=== PATIENT | female | born 1955 | race Two or more races ===

== ENCOUNTER 2016-11-14 12:17 | Emergency (ER) | payer OTHER ==
[2016-11-14 12:22] VITALS: BP 134/80; PULSE 80; TEMP 97.9
--- NOTE | 2016-11-14 12:23 | PDOC ---
History of Present Illness - General Chief Complaint: Chest Pain Stated Complaint: CHEST PRESSURE Time Seen by Provider: 11/14/16 12:22 History Source: Patient Exam Limitations: No Limitations - History of Present Illness Initial Comments: 11/14/16 12:23 This pt is a 61 yo F with a past medical history of pre Diabetes, HLD, Asthma presenting to the ER with a complaint of chest pressure. The patient reports that the symptoms began yesterday. Yeserday had chest pressure lasting 15 - 20 minutes. Today this recurred and is ongoing, occurred while doing nothing in particular. PT described chest symptoms as pressure, rates it 4/10, no radiation to arm/jaw or back No associated diaphoresis or nausea No exertional symptoms Pt denies chest wall trauma or bruising. Pt denies lower extremity edema. Pt denies cough or shortness of breath Pt denies nausea, vomiting, or diarrhea. Pt denies lightheadedness, palpitations, or syncope Pt denies radiation of pain, aggravation of pain or alleviation of pain. Pt denies allergies, and significant past hospitalizations. Pt denies alcohol use, tobacco use, or recreational drug use. Pt denies past history of cardiac disease. Stress test ?10 years ago (Reportedly negative) Pt denies recent travel. PMH: pre diabetes, HLD PSH: denies Meds: Singulair, Atorvastatin, Metformin ALL: NKDA Social: denies tobacco use GENERAL/CONSTITUTIONAL: No: fever, chills, weakness, loss of appetite. HEAD, EYES, EARS, NOSE AND THROAT: No: change in vision, ear pain, discharge, sore throat, throat swelling. CARDIOVASCULAR: (+) chest pain No: lightheadedness, palpitations, syncope RESPIRATORY: No: cough, shortness of breath, wheezing, hemoptysis, stridor. GASTROINTESTINAL: No: nausea, vomiting, diarrhea, abdominal cramping, rectal bleeding, constipation. GENITOURINARY: No: dysuria, hematuria, frequency, urgency, flank pain. MUSCULOSKELETAL: No: back pain, neck pain, joint pain, muscle swelling or pain SKIN AND BREASTS: No: lesions, pallor, rash or easy bruising. NEUROLOGIC: No: headache, vertigo, paresthesias, weakness ENDOCRINE: No: unexplained weight gain or loss HEMATOLOGIC/LYMPHATIC: No: anemia, easy bleeding, swelling nodes. GENERAL: The patient is in no acute distress. HEAD: Normal with no signs of trauma. EYES: PERRLA, EOMI, sclera anicteric, conjunctiva clear. ENT: Ears normal, nares patent, oropharynx clear without exudates. Moist mucous membranes. NECK: Normal range of motion, supple without lymphadenopathy, JVD, or masses. LUNGS: Breath sounds equal, clear to auscultation bilaterally. No wheezes, and no crackles. HEART: Regular rate and rhythm, normal S1 and S2 without murmur, rub or gallop. ABDOMEN: Soft, nontender, normoactive bowel sounds. No guarding, no rebound. No masses palpable. EXTREMITIES: Normal range of motion, no edema. No clubbing or cyanosis. No erythema, or tenderness. NEUROLOGICAL: Cranial nerves II through XII grossly intact. Normal speech. No focal neurological deficits. MUSCULOSKELETAL: Back non-tender to palpation, no CVA tenderness SKIN: Warm, Dry, normal turgor, no rashes or lesions noted. 11/14/16 12:24 11/14/16 12:39 Past History - Past Medical History Allergies/Adverse Reactions: Allergies Allergy/AdvReac Type Severity Reaction Status Date / Time No Known Allergies Allergy Verified 11/14/16 12:18 Home Medications: Ambulatory Orders Montelukast Na [Singulair] 10 mg PO DAILY 11/03/11 Atorvastatin Ca [Lipitor] 0 mg PO HS 11/14/16 Metformin HCl [Metformin HCl ER] 500 mg PO BID 11/14/16 Asthma: Yes Diabetes: Yes (PRE) Hypercholesterolemia: Yes - Psycho/Social/Smoking Cessation Hx Anxiety: No Suicidal Ideation: No Smoking Status: No Smoking History: Never smoked Number of Cigarettes Smoked Daily: 0 Hx Alcohol Use: No Drug/Substance Use Hx: No Substance Use Type: None *Physical Exam - Vital Signs Last Vital Signs Temp Pulse Resp BP Pulse Ox 97.9 F 80 16 134/80 100 11/14/16 12:17 11/14/16 12:17 11/14/16 12:17 11/14/16 12:17 11/14/16 12:17 Heart Score/ECG Review - History History: Moderately suspicious - Electrocardiogram EKG: Normal - Age Age: 45-65 - Risk Factors Risk Factors Heart Score: Yes Hx Hypercholesterolemia, Yes Hx Diabetes, Yes Smoking History Based on the list above the patient has:: >/=3 risk factors or Hx atherosclerotic disease - Troponin Troponin: </= normal limit - Score Heart Score - Total: 4 #1 ECG reviewed & interpreted by me at: 12:43 General ECG Interpretation: Sinus Rhythm, Normal Rate, Normal Intervals, No acute ischemic changes ED Treatment Course - LABORATORY CBC & Chemistry Diagram: 11/14/16 12:10 11/14/16 12:10 - ADDITIONAL ORDERS Additional order review: Laboratory Results 11/14/16 11/14/16 11/14/16 12:50 12:10 12:10 INR 1.00 Sodium 134 L Potassium 4.1 Chloride 105 Carbon Dioxide 24 Anion Gap 5 L BUN 16 Creatinine 0.8 Creat Clearance w eGFR > 60 Random Glucose 91 Calcium 9.1 Total Bilirubin < 0.3 D AST 20 ALT 20 Alkaline Phosphatase 64 D Creatine Kinase 80 Cancelled Troponin I < 0.03 L Cancelled Total Protein 7.1 Albumin 3.9 11/14/16 12:10 RBC 4.88 MCV 83.0 MCHC 33.7 RDW 13.1 MPV 9.7 Neutrophils % 51.0 Lymphocytes % 27.0 Monocytes % 9.0 Eosinophils % 4.0 Basophils % 1.0 - RADIOLOGY Radiology Studies Ordered: Category Date Time Status CHEST X-RAY PORTABLE* [RAD] Stat Radiology 11/14/16 12:27 Completed - Medications Given in the ED: ED Medications Discontinued Medications Generic Name Dose Route Start Last Admin Trade Name Freq PRN Reason Stop Dose Admin Aspirin 162 mg 11/14/16 12:27 11/14/16 12:52 Asa - PO 11/14/16 12:28 162 mg ONCE ONE Administration Famotidine/Sodium Chloride 50 mls @ 100 mls/hr 11/14/16 12:45 11/14/16 12:52 Pepcid 20 Mg Premixed Ivpb - IVPB 11/14/16 13:14 100 mls/hr ONCE ONE Administration Medical Decision Making - Medical Decision Making 11/14/16 12:44 Pt presents to the ER with a complaint of chest pressure (+) risk factors Differential includes cardiac ischemia, pe, asthma exacerbation, pneumonia, pneumothorax, pleural effusion, costochondritis, pericarditis, GERD. Will do labs Will do xray Will re assess 11/14/16 14:21 Laboratory Tests 04/07/17 04/07/17 04/07/17 12:10 12:10 12:10 WBC 7.9 Hgb 13.6 Hct 40.5 Plt Count No Result Required. INR 1.00 Sodium 134 L Potassium 4.1 Chloride 105 Carbon Dioxide 24 BUN 16 Creatinine 0.8 Random Glucose 91 Creatine Kinase Cancelled Troponin I Cancelled 11/14/16 12:50 WBC Hgb Hct Plt Count INR Sodium Potassium Chloride Carbon Dioxide BUN Creatinine Random Glucose Creatine Kinase 80 Troponin I < 0.03 L 11/14/16 14:21 Xray demonstrates bilateral plate like atalectasis Pt feels well now Pt does not want to stay overnight We had a long conversation about the risk of chest pain in women being the result of cardiac ischemia and presenting with non specific symptoms Pt does not want to stay in the hospital She would rather follow up with her PMD and then cardiology Pt understands that she leaves the ER today against my medical advise Note: The patient insists on leaving the emergency dept and is signing out against medical advice. The patient understands the risks and complications that may result from the refusal of medical care and admission which includes and permanent disability. The patient has the mental capacity of understanding the risks of refusing care and is capable of making an informed decision. The patient was instructed to return to the emergency department should she change her mind regarding medical care or should her condition worsen or change in any way. The patient signed the Against Medical Advice form. *DC/Admit/Observation/Transfer Diagnosis at time of Disposition: Chest pain Qualifiers: Chest pain type: unspecified Qualified Code(s): R07.9 - Chest pain, unspecified - Discharge Dispostion Disposition: AGAINST MEDICAL ADVICE Condition at time of disposition: Fair Admit: No - Patient Instructions Printed Discharge Instructions: DI for Atypical Chest Pain, DI for Chest Pain Additional Instructions: Ms Giles Thank you so much for coming in to the ER today As we discussed, I am concerned about cardiac ischemia Please do not hesitate to come to the ER IMMEDIATELY by EMS if you have any new symptoms, any other concerns or complaints Please follow up with your primary care physician as we discussed in 2 days
[2016-11-14] MEDS ORDERED: ASPIRIN 81 MG CHEWABLE TABLETS PO ONE (12:27)
[2016-11-14] MEDS ORDERED: FAMOTIDINE 20 MG/50 ML IVPB 50 ML IVPB ONE ×2 (12:45→12:48)
[2016-11-14] MEDS ORDERED: ASPIRIN 81 MG CHEWABLE TABLETS ONE (12:48)
[2016-11-14 12:58] LABS: RDW 13.1 % (11.6-15.6); WHITE BLOOD COUNT 7.9 K/mm3 (4.0-10.0)
[2016-11-14 13:03] LABS: MCHC 33.7 g/dl (32.0-36.0); MEAN PLT VOLUME 9.7 fl (7.5-11.1)
[2016-11-14 13:07] LABS: PROTHROMBIN TIME (PATIENT) 11.2 SEC (10.2-13.0)
[2016-11-14 13:14] LABS: ALBUMIN 3.9 g/dl (3.5-5.0); ALK PHOS 64 U/L (32-92); ANION GAP 5 (8-16); CALCIUM 9.1 mg/dl (8.4-10.2); CO2 24 mmol/L (22-28); COCKROFT - GAULT 6.9615; CREATININE 0.8 mg/dl (0.6-1.3); GLUCOSE,RANDOM 91 mg/dl (74-106); SGOT/AST 20 U/L (10-42); SGPT/ALT 20 U/L (10-40); TOT PROT 7.1 g/dl (6.4-8.3)
[2016-11-14 13:19] LABS: CPK(DFH) 80 IU/L (26-140)
[2016-11-14 13:25] LABS: BILIRUBIN,TOTAL < 0.3 mg/dl (0.2-1.0)
[2016-11-14 13:37] LABS: TROPONIN I (DFP) < 0.03 ng/ml (0.03-0.50)
--- NOTE | 2016-11-17 09:13 | EKG ---
Test Reason : Blood Pressure : / mmHG Vent. Rate : 076 BPM Atrial Rate : 076 BPM P-R Int : 142 ms QRS Dur : 072 ms QT Int : 382 ms P-R-T Axes : 061 054 054 degrees QTc Int : 429 ms SINUS RHYTHM RSR' OR QR PATTERN IN V1 SUGGESTS RIGHT VENTRICULAR CONDUCTION DELAY WHEN COMPARED WITH ECG OF 02-MAY-2006 08:40, RSR' PATTERN IN V1 is now present Confirmed by CHERYL OLIVIER, VALENTE ([id number]) on 11/17/2016 9:12:54 AM Referred By: RAYMUNDO Confirmed By:VALENTE LUNA MD
== END 2016-11-14 15:08 | disposition left against medical advice (07) ==
LOC: FER 12:17
PROC: 3E033GC Introduction of Other Therapeutic Substance into Peripheral Vein, Percutaneous Approach (ICD-10-PCS; principal; 2016-11-14)
DX: R07.9 Chest pain, unspecified (principal); E78.5 Hyperlipidemia, unspecified; J45.909 Unspecified asthma, uncomplicated
CPT/HCPCS: 36415; 71010-TC; 80053; 82550; 84484; 85025; 85610; 93005; 99284-25

== ENCOUNTER 2016-12-19 06:26 | Day surgery (SDC) | payer OTHER ==
[2016-12-08 13:53] VITALS: BMI 27.1
[2016-12-19] MEDS ORDERED: PROPOFOL 20 ML ONE ×2 (06:28)
[2016-12-19] MEDS ORDERED: LIDOCAINE HCL/PF 2% SDV 5ML VIAL ONE (06:28)
[2016-12-19 09:38] VITALS: TEMP 97.6
[2016-12-19 10:33] VITALS: BP 123/65; PULSE 71
--- NOTE | 2016-12-22 16:18 | PATH ---
Surgical Pathology Report Patient Name: ANGELICA DE [facility]. Rec. #: [id number] /Age/Gender: 1955 (Age: 61) / F Account: [id number] [facility] Taken: 12/19/2016 Received: 12/19/2016 Reported: 12/22/2016 Physicians: Kaila Buckley M.D. Specimen(s) Received A: BX ASCENDING COLON B: BX DESCENDING COLON C: BX ANTRUM D: BX GASTRIC BODY E: BX ESOPHAGUS Clinical History Family history of malignant neoplasm of gastrointestinal tract Polyp, rule out celiac disease, rule out H. Pylori, gastritis, GERD Final Diagnosis A. ASCENDING COLON, BIOPSY: HYPERPLASTIC POLYP. B. DUODENUM, BIOPSY: DUODENAL MUCOSA WITH NO PATHOLOGIC FINDINGS. Note: Features suggestive of celiac disease are not identified in this biopsy. C. ANTRUM, BIOPSY: MODERATE CHRONIC GASTRITIS WITH INTESTINAL METAPLASIA. IMMUNOSTAIN IS NEGATIVE FOR H. PYLORI ORGANISMS. D. GASTRIC BODY, BIOPSY: MILD CHRONIC GASTRITIS. IMMUNOSTAIN IS NEGATIVE FOR H. PYLORI ORGANISMS. E. ESOPHAGUS, BIOPSY: ESOPHAGOGASTRIC (SQUAMOCOLUMNAR) MUCOSA SHOWING FEATURES OF REFLUX ESOPHAGITIS. NO COLUMNAR EPITHELIUM/INTESTINAL METAPLASIA IS IDENTIFIED. Electronically Signed Ariadna Bright M.D. Gross Description A. Received in formalin, labeled "ascending" is a hays, irregular portion of soft tissue measuring 0.6 cm. in greatest dimension. The specimen is submitted in toto in one cassette. B. Received in formalin, labeled "duodenum" are 2 hays, irregular portions of soft tissue measuring 0.2 and 0.6 cm. in greatest dimension. The specimens are submitted in toto in one cassette. C. Received in formalin, labeled "antrum" is a hays, irregular portion of soft tissue measuring 0.3 cm. in greatest dimension. The specimen is submitted in toto in one cassette. D. Received in formalin, labeled "body" are 2 hays, irregular portions of soft tissue measuring 0.1 and 0.3 cm. in greatest dimension. The specimens are submitted in toto in one cassette. E. Received in formalin, labeled "esophagus" is a hays, irregular portion of soft tissue measuring 0.4 cm. in greatest dimension. The specimen is submitted in toto in one cassette. 12/19/2016/12/19/2016
== END 2016-12-19 10:50 | disposition home or self-care (01) ==
LOC: FASU 06:26
PROVIDERS: ATTEND Internal Medicine
PROC: 0DB68ZX Excision of Stomach, Via Natural or Artificial Opening Endoscopic, Diagnostic (ICD-10-PCS; 2016-12-19)
PROC: 0DB58ZX Excision of Esophagus, Via Natural or Artificial Opening Endoscopic, Diagnostic (ICD-10-PCS; 2016-12-19)
PROC: 0DBK8ZX Excision of Ascending Colon, Via Natural or Artificial Opening Endoscopic, Diagnostic (ICD-10-PCS; principal; 2016-12-19 07:33)
PROC: 0DB98ZX Excision of Duodenum, Via Natural or Artificial Opening Endoscopic, Diagnostic (ICD-10-PCS; 2016-12-19 07:33)
DX: Z12.11 Encounter for screening for malignant neoplasm of colon (principal); K63.5 Polyp of colon; K29.50 Unspecified chronic gastritis without bleeding; K64.4 Residual hemorrhoidal skin tags; K44.9 Diaphragmatic hernia without obstruction or gangrene; Z80.0 Family history of malignant neoplasm of digestive organs
CPT/HCPCS: 88305-TC; 88342-TC

== ENCOUNTER 2018-05-09 04:23 | Emergency (ER) | payer OTHER ==
[2018-05-09 04:44] VITALS: BP 127/77; PULSE 87; TEMP 98.3; BMI 26.4
--- NOTE | 2018-05-09 04:47 | PDOC ---
History of Present Illness - General Chief Complaint: Constipation Stated Complaint: Stomach Pains x1 day Time Seen by Provider: 05/09/18 04:42 History Source: Patient Exam Limitations: No Limitations - History of Present Illness Initial Comments: 05/09/18 04:49 This is a 62-year-old female who comes in complaining of right lower quadrant abdominal pain. Patient states she has had pain since yesterday afternoon. Patient denies any fever, chills, nausea, anorexia or any other complaints. Patient has a history for hypertension, hyperlipidemia and diabetes.. Patient denies history of surgery on her abdomen past. PAST MEDICAL HISTORY: no significant history PAST SURGICAL HISTORY: no significant history FAMILY HISTORY: no pertinant history SOCIAL HISTORY: Pt lives with family and is employed. MEDICATIONS: reviewed ALLERGIES: As per nursing notes ROS General: No fevers or chills, no weakness, no weight loss HEENT: No change in vision. No sore throat,. No ear pain CardioVascular: No chest pain or shortness of breath Respiratory:No cough, or wheezing. Gastrointestinal: no nausea, vomiting, diarrhea or constipation, No rectal bleeding, + abdominal pain Genitourinary: No dysuria, hematuria, or frequency Musculoskeletal: . No joint pain or swelling Neurologic: No headache, vertigo, dizziness or loss of consciousness Psychiatric: nor depression Skin: No rashes or easy bruising Endocrine: no increased thirst or abnormal weight change Allergic: no skin or latex allergy All other systems reviewed and normal Exam: General: Well-nourished well-developed individual, no acute distress HEENT: Throat: Normal, tonsils normal, no erythema or exudate Neck: Supple, no meningeal signs, no lymphadenopathy Eyes::Pupils equal reactive and round, extraocular motion intact Chest: Nontender to palpation Cardiac: S1-S2 normal, regular rate and rhythm, no murmurs rubs or gallops Respiratory: Lungs clear to auscultation bilateral Abdomen: Soft, nondistended, normal bowel sounds, there is tenderness on palpation right side of her abdomen more pronounced in the right lower quadrant. There is no guarding or rebound Extremities: Warm, dry, no cyanosis, clubbing, or edema Skin: No rashes Neuro: Alert and oriented x3, CN II - XII intact, nonfocal exam with normal strength, normal sensation, normal reflexes, normal gait, Psych: Normal mood and affect Past History - Past Medical History Allergies/Adverse Reactions: Allergies Allergy/AdvReac Type Severity Reaction Status Date / Time No Known Allergies Allergy Verified 12/19/16 05:44 Home Medications: Ambulatory Orders Montelukast Na [Singulair -] 10 mg PO DAILY 11/03/11 Atorvastatin Ca [Lipitor] 20 mg PO HS 11/14/16 Metformin HCl [Metformin HCl ER] 500 mg PO BID 11/14/16 Albuterol Sulfate [Proair Respiclick] 90 mcg IH DAILY PRN 12/08/16 Cholecalciferol (Vitamin D3) [Vitamin D3] 1,000 unit PO DAILY 05/09/18 Anemia: No Asthma: Yes Cancer: No Cardiac Disorders: No CVA: No COPD: No CHF: No Dementia: No Diabetes: Yes GI Disorders: Yes (GERD) Disorders: No HTN: No Hypercholesterolemia: Yes Liver Disease: No Seizures: No Thyroid Disease: No - Surgical History Abdominal Surgery: No Appendectomy: No Cardiac Surgery: No Cholecystectomy: No Lung Surgery: No Neurologic Surgery: No Orthopedic Surgery: No - Suicide/Smoking/Psychosocial Hx Smoking Status: No Smoking History: Former smoker Have you smoked in the past 12 months: No Number of Cigarettes Smoked Daily: 0 If you are a former smoker, when did you quit?: 1998 Hx Alcohol Use: Yes (RARE) Drug/Substance Use Hx: No Substance Use Type: Alcohol Hx Substance Use Treatment: No ED Treatment Course - LABORATORY CBC & Chemistry Diagram: 05/09/18 04:55 05/09/18 04:55 *DC/Admit/Observation/Transfer Diagnosis at time of Disposition: Abdominal pain Qualifiers: Abdominal location: right lower quadrant Qualified Code(s): R10.31 - Right lower quadrant pain - Discharge Dispostion Disposition: HOME Condition at time of disposition: Improved - Referrals - Patient Instructions Printed Discharge Instructions: DI for Abdominal Pain-Adult Additional Instructions: Fluids, rest, Tylenol Follow up with your preparation center coordinator If worsen return to ER - Post Discharge Activity
[2018-05-09] MEDS ORDERED: SODIUM CHLORIDE 1,000 ML IV SCH (05:00)
[2018-05-09 06:06] LABS: BASO % 1.8 % (0-2.0); EOS % 4.3 % (0-4.5); HEMATOCRIT 39.7 % (32.4-45.2); HEMOGLOBIN 13.2 GM/dL (10.7-15.3); LYMPH % 36.9 % (8-40); MCH 27.5 pg (25.7-33.7); MCHC 33.2 g/dl (32.0-36.0); MEAN CELL VOLUME 82.9 fl (80-96); MONO % 7.7 % (3.8-10.2); NEUT % 49.3 % (42.8-82.8); RBC 4.79 M/mm3 (3.60-5.2); RDW 14.6 % (11.6-15.6); WHITE BLOOD COUNT 7.5 K/mm3 (4.0-10.0)
[2018-05-09 07:11] LABS: ALBUMIN 3.5 g/dl (3.4-5.0); ALK PHOS 86 U/L (45-117); ANION GAP 7 MMOL/L (8-16); BILIRUBIN,TOTAL 0.3 mg/dL (0.2-1); BLOOD UREA NITROGEN 12 mg/dL (7-18); CALCIUM 8.8 mg/dL (8.5-10.1); CHLORIDE 106 mmol/L (98-107); CO2 26 mmol/L (21-32); CREATININE 0.9 mg/dL (0.55-1.3); GLUCOSE,RANDOM 96 mg/dL (74-106); LIPASE 116 U/L (73-393); POTASSIUM 4.4 mmol/L (3.5-5.1); SGOT/AST 19 U/L (15-37); SGPT/ALT 26 U/L (13-61); SODIUM 139 mmol/L (136-145); TOT PROT 7.1 g/dl (6.4-8.2)
--- NOTE | 2018-05-09 07:33 | PDOC ---
*Physical Exam - Vital Signs Last Vital Signs Temp Pulse Resp BP Pulse Ox 98.3 F 87 16 127/77 99 05/09/18 04:40 05/09/18 04:40 05/09/18 04:40 05/09/18 04:40 05/09/18 04:40 05/09/18 07:31 62 y/o female initially seen by Dr. Jefferson, present with several weeks of abdominal pain on/off. Patient states this pain feels a little different. No N/ V/d/C. No fevr or chills. Denies blood in stool. No dysuria. Has mild back pain. No fall or trauma. Patient has appointment with GI coming up. - Physical Exam General Appearance: Yes: Nourished, Appropriately Dressed HEENT: positive: EOMI, AMANDA, Normal ENT Inspection Neck: positive: Trachea midline, Normal Thyroid, Supple. negative: Rigid Respiratory/Chest: positive: Lungs Clear, Normal Breath Sounds Cardiovascular: positive: Regular Rhythm, Regular Rate, S1, S2 Vascular Pulses: Femoral (R): 4+, Femoral (L): 4+, Carotid (R): 4+, Carotid (L) : 4+, Dorsalis-Pedis (R): 4+, Doralis-Pedis (L): 4+ Gastrointestinal/Abdominal: positive: Normal Bowel Sounds, Flat, Soft. negative : Tender (mild tenderness to RLQ and RUQ, no tendernss to LLQ or LUQ, +BS), Organomegaly, Pulsatile Mass Lymphatic: negative: Adenopathy, Tenderness, Other Musculoskeletal: positive: Normal Inspection. negative: CVA Tenderness Extremity: positive: Normal Capillary Refill, Normal Inspection, Normal Range of Motion Integumentary: positive: Normal Color, Dry, Warm Neurologic: positive: unit director II-XII NML intact, Fully Oriented, Alert, Normal Mood/ Affect, Normal Response, Motor Strength 5/5 ED Treatment Course - LABORATORY CBC & Chemistry Diagram: 05/09/18 04:55 05/09/18 04:55 - ADDITIONAL ORDERS Additional order review: Laboratory Results 05/09/18 04:55 Sodium 139 Potassium 4.4 Chloride 106 Carbon Dioxide 26 Anion Gap 7 L BUN 12 Creatinine 0.9 Creat Clearance w eGFR > 60 Random Glucose 96 Calcium 8.8 Total Bilirubin 0.3 AST 19 ALT 26 Alkaline Phosphatase 86 Total Protein 7.1 Albumin 3.5 Lipase 116 05/09/18 04:55 RBC 4.79 MCV 82.9 MCHC 33.2 RDW 14.6 Neutrophils % 49.3 Lymphocytes % 36.9 Monocytes % 7.7 Eosinophils % 4.3 Basophils % 1.8 Progress Note - Progress Note Progress Note: Pt is doing well. Labs negative. CT abdomen/pelvis negative. Will discharge home with follow up with GI Patient is in agreement with plan. *DC/Admit/Observation/Transfer Diagnosis at time of Disposition: Abdominal pain Qualifiers: Abdominal location: right lower quadrant Qualified Code(s): R10.31 - Right lower quadrant pain - Discharge Dispostion Disposition: HOME Condition at time of disposition: Improved Decision to Admit order: No - Referrals - Patient Instructions Printed Discharge Instructions: DI for Abdominal Pain-Adult Additional Instructions: Fluids, rest, Tylenol Follow up with your bank courier If worsen return to ER - Post Discharge Activity
[2018-05-09 08:26] LABS: PH,URINE 8.5 (4.5-8); URINE APPEARANCE Clear; URINE BILIRUBIN Negative (NEGATIVE); URINE COLOR Yellow; URINE GLUCOSE (UA) Negative (NEGATIVE); URINE KETONE Negative (NEGATIVE); URINE LEUK ESTERASE Negative (NEGATIVE); URINE NITRITE Negative (NEGATIVE); URINE PROTEIN Negative (NEGATIVE); URINE UROBILINOGEN 0.2 (0.2-1.0)
[2018-05-09 13:51] LABS: PLATELET ESTIMATE DECREASED
== END 2018-05-09 10:08 | disposition home or self-care (01) ==
LOC: FER 04:23
DX: R10.31 Right lower quadrant pain (principal); K21.9 Gastro-esophageal reflux disease without esophagitis; E78.00 Pure hypercholesterolemia, unspecified; E11.9 Type 2 diabetes mellitus without complications; Z87.891 Personal history of nicotine dependence
CPT/HCPCS: 36415; 74177-TC; 80053; 81003; 83690; 85025; 99283-25; J7030